=== PATIENT | male | born 1980 | race Caucasian/White ===

== ENCOUNTER 2025-04-25 18:34 | Inpatient (IN) | payer BC, SELFPAY ==
[2025-04-25 15:20] VITALS: BP 135/83
--- NOTE | 2025-04-25 16:05 | ED.GENMED ---
History of Present Illness
<Michael Martines PA-C - Last Filed: 04/25/25 16:09>
General
Chief Complaint: Insect Sting
Source: patient
Time Seen by Provider: 04/25/25 15:53
History of Present Illness
History of Present Illness:
44-year-old male with past medical history of hypothyroidism presenting to the ER for evaluation at the request of primary care provider after he noticed some redness to the left medial foot about 2 to 3 days ago, progressively worsened prompting
him to go to the primary care today who recommended he come to the ER for further evaluation. Patient denies any fevers, chills, rigors. He does note that last week he had been [place] and out [place] but states he is unaware of any tick
bites. No history of similar. He did take some Motrin for pain prior to arrival, currently declining anything else for pain.
Past History
<Michael Martines PA-C - Last Filed: 04/25/25 16:09>
Past History
ED Past Medical History: Hypothyroidism
ED Past Surgical History: Tonsilectomy
Social History
Tobacco: Non-smoker
Alcohol: Occasional
Drug: None
Personal:
Living: with family
Employment: Employed
Review of Systems
<Michael Martines PA-C - Last Filed: 04/25/25 16:09>
Review of Systems
All Other Systems: ROS reviewed and negative except as documented in HPI and ROS
Phy Exam
<Michael Martines PA-C - Last Filed: 04/25/25 16:09>
Physical Exam
Physical Exam:
GENERAL: Alert , in no apparent distress
EYE: conjunctiva clear
Head: Normocephalic atraumatic
NECK: Supple,
ENT: mmm.
LUNGS: no acute respiratory distress
NEUROLOGICAL: Alert and oriented
SKIN: Warm and dry, left medial foot has deep circular area of erythema with 2 small breaks in the skin, no purulence, indurated, hot to the touch. Streaking goes up the left lower leg and into the medial thigh towards the groin.
MUSCULOSKELETAL: well perfused. Edema noted around the areas of erythema. Palpable pedal and tibial pulse. Cap refill less than 2 seconds.
PSYCH: Normal and appropriate interaction.
Scores
<Michael Martines PA-C - Last Filed: 04/25/25 16:09>
Heart Failure Risk
Heart Failure Risk Score: Not Applicable
Heart Score for Chest Pain Patients
STEMI patient?: Not applicable
Withdrawal Assessment of Alcohol
Withdrawal Assessment Completed?: Not applicable
Course
<Michael Martines PA-C - Last Filed: 04/25/25 16:09>
Orders/Labs/Results
Orders:
Orders
04/25/25 Breakfast
Regular
At Your Request: Full Participation
Does patient need a safe tray?: No
04/25/25 15:59
US Periph Venous LOWER Ext LT Urgent
Comment:
Reason For Exam: edema/erythema
04/25/25 17:00
CeFAZolin 1 GRAM [Ancef] 1 gram in 5 ml IV NOW
04/25/25 17:08
Basic Metabolic Panel Urgent
Complete Blood Count/With Diff Urgent
Lactic Acid Q4H
Comment: CANCEL 2nd LACTIC ACID IF 1st LACTIC ACID IS LESS THAN 2
Lyme Progressive Urgent
Blood Culture Q30M
CHER Source: Blood/Venous
Specimen Description:
Blood Culture Q30M
CHER Source: Blood/Venous
Specimen Description:
04/25/25 17:48
Admit/Transfer Patient As Directed
Co-Sign Provider:
Level of Care: Inpatient admission
Assign to:: Medical/Surgical
Physician / Group: [facility] [place]
Diagnosis: left LE cellulitis
Reason for Hospitalization: left LE cellulitis
Expected length of stay greater than two midnights?: Yes
ELOS- Estimated Length of Stay in days: 3
I certify the patient meets the requirements for IP care: Yes
PRN Pain Medication Management As Directed
May give lesser potent ordered pain med per pt: Yes
preference::
Protocol:: Medication orders for pain may be administered in a
manner that supports deferring to patient preference
when the pt is:
- Requesting an ordered lesser potent pain medication.
Least to most potent pain medications are defined
as: acetaminophen < NSAID < tramadol < opioids
(morphine, oxycodone, hydromorphone).
- Requesting a lesser dose of the same medication IF
ORDERED.
- Requesting a less intrusive route of administration
if both routes are prescribed by the provider (PO <
IV).
04/25/25 17:50
Code Status As Directed
Resuscitation Status: Full Code
04/25/25 19:40
Acetaminophen [Tylenol/Feverall] 650 mg RECTAL Q4HPRN PRN
Acetaminophen [Tylenol] 650 mg PO Q4HPRN PRN
Enoxaparin Sodium [Lovenox] 40 mg SC QPM
04/25/25 19:40
Activity As Directed
Activity Level: Out of Bed-Early Mobility
Intake/ Output As Directed
Frequency: Per unit guidelines
Vital Signs As Directed
Frequency: Per unit guidelines
DX Deep Vein Thrombosis Video Routine
04/26/25 00:00
CeFAZolin 2 GRAM [Ancef] 2 grams in 10 ml IV Q8H
Abnormal Lab Results
04/25/25
17:08
Absolute Neuts (auto) 8.3 H 10^3/uL
(1.4-6.5)
Absolute Lymphs (auto) 0.6 L 10^3/uL
(1.2-3.4)
Absolute Monos (auto) 0.8 H 10^3/uL
(0.1-0.6)
Neutrophils % 84.5 H %
(42.2-75.2)
Lymphocytes % 6.4 L %
(20.5-51.1)
04/25/25 17:08
04/25/25 17:08
Vital Signs
Initial and Last Documented VS:
Initial Vital Signs
Temp Pulse Resp BP Pulse Ox
98.5 F 87 16 135/83 97
04/25/25 15:20 04/25/25 15:20 04/25/25 15:20 04/25/25 15:20 04/25/25 15:20
Last Documented Vital Signs
Temp Pulse Resp BP Pulse Ox
99.2 F 108 18 128/72 95
04/26/25 00:14 04/25/25 22:21 04/25/25 22:21 04/25/25 22:21 04/25/25 22:21
<BRADEN Acevedo - Last Filed: 04/26/25 00:39>
Orders/Labs/Results
Orders:
Orders
04/25/25 Breakfast
Regular
At Your Request: Full Participation
Does patient need a safe tray?: No
04/25/25 15:59
US Periph Venous LOWER Ext LT Urgent
Comment:
Reason For Exam: edema/erythema
04/25/25 17:00
CeFAZolin 1 GRAM [Ancef] 1 gram in 5 ml IV NOW
04/25/25 17:08
Basic Metabolic Panel Urgent
Complete Blood Count/With Diff Urgent
Lactic Acid Q4H
Comment: CANCEL 2nd LACTIC ACID IF 1st LACTIC ACID IS LESS THAN 2
Lyme Progressive Urgent
Blood Culture Q30M
CHER Source: Blood/Venous
Specimen Description:
Blood Culture Q30M
CHER Source: Blood/Venous
Specimen Description:
04/25/25 17:48
Admit/Transfer Patient As Directed
Co-Sign Provider:
Level of Care: Inpatient admission
Assign to:: Medical/Surgical
Physician / Group: [facility] [place]
Diagnosis: left LE cellulitis
Reason for Hospitalization: left LE cellulitis
Expected length of stay greater than two midnights?: Yes
ELOS- Estimated Length of Stay in days: 3
I certify the patient meets the requirements for IP care: Yes
PRN Pain Medication Management As Directed
May give lesser potent ordered pain med per pt: Yes
preference::
Protocol:: Medication orders for pain may be administered in a
manner that supports deferring to patient preference
when the pt is:
- Requesting an ordered lesser potent pain medication.
Least to most potent pain medications are defined
as: acetaminophen < NSAID < tramadol < opioids
(morphine, oxycodone, hydromorphone).
- Requesting a lesser dose of the same medication IF
ORDERED.
- Requesting a less intrusive route of administration
if both routes are prescribed by the provider (PO <
IV).
04/25/25 17:50
Code Status As Directed
Resuscitation Status: Full Code
04/25/25 19:40
Acetaminophen [Tylenol/Feverall] 650 mg RECTAL Q4HPRN PRN
Acetaminophen [Tylenol] 650 mg PO Q4HPRN PRN
Enoxaparin Sodium [Lovenox] 40 mg SC QPM
04/25/25 19:40
Activity As Directed
Activity Level: Out of Bed-Early Mobility
Intake/ Output As Directed
Frequency: Per unit guidelines
Vital Signs As Directed
Frequency: Per unit guidelines
DX Deep Vein Thrombosis Video Routine
04/26/25 00:00
CeFAZolin 2 GRAM [Ancef] 2 grams in 10 ml IV Q8H
Abnormal Lab Results
04/25/25
17:08
Absolute Neuts (auto) 8.3 H 10^3/uL
(1.4-6.5)
Absolute Lymphs (auto) 0.6 L 10^3/uL
(1.2-3.4)
Absolute Monos (auto) 0.8 H 10^3/uL
(0.1-0.6)
Neutrophils % 84.5 H %
(42.2-75.2)
Lymphocytes % 6.4 L %
(20.5-51.1)
04/25/25 17:08
04/25/25 17:08
Vital Signs
Initial and Last Documented VS:
Initial Vital Signs
Temp Pulse Resp BP Pulse Ox
98.5 F 87 16 135/83 97
04/25/25 15:20 04/25/25 15:20 04/25/25 15:20 04/25/25 15:20 04/25/25 15:20
Last Documented Vital Signs
Temp Pulse Resp BP Pulse Ox
99.2 F 108 18 128/72 95
04/26/25 00:14 04/25/25 22:21 04/25/25 22:21 04/25/25 22:21 04/25/25 22:21
<Michael Martines PA-C - Last Filed: 04/25/25 16:09>
MDM/Problems Addressed
Differential Diagnosis Includes:
- Cellulitis
- DVT
- Superficial phlebitis
- Erythema migrans/Lyme
- Necrotizing fasciitis
MDM/Problems Addressed:
44-year-old male presented to the ER for evaluation of erythema, pain and mild edema to the left lower extremity over the last 2 to 3 days. Erythema now streaking all the way up the left leg and into the groin. No fevers or chills. There were
small breaks in the skin, presentation seems most suggestive of a cellulitis with lymphangitis. Will initiate patient on IV antibiotics. Labs and ultrasound ordered. Patient declining anything for pain. Will notify hospitalist team pending ER
workup.
<Michael Martines PA-C - Last Filed: 04/25/25 16:09>
*Pulse Oximetry
SaO2: 97
Oxygen Mode of Delivery: Room air
Patient hypoxic: no
<BRADEN Acevedo - Last Filed: 04/26/25 00:39>
*Critical Care Note
Total Time (30-74mins, 75-104mins- exclusive of procedures): Not Applicable
<BRADEN Acevedo - Last Filed: 04/26/25 00:39>
Update Note
Update Note:
Labs reviewed white count unremarkable and ultrasound negative for DVT care of patient at this time discussed with hospitalist for admission
ED Attending Note
<Michael Martines PA-C - Last Filed: 04/25/25 16:09>
-
Portions of this chart may have been created with voice recognition software.� Occasional wrong word or��sound alike� substitutions may have occurred due to the inherent limitations of voice recognition software.
Discharge Plan
Departure
Patient Disposition: Admit
Date of Disposition: 04/25/25
Time of Disposition: 17:36
Admit to: Med/Surg
Admit to doctor: hospitalist
Presentation/result/management discussed w/ accepting MD/DO: Hospitalist
Patient with high blood pressure during this ER visit?: Yes
Condition: Fair
Covid-19: Not Applicable
Discharge Problem:
Cellulitis
Interventions
Interventions:
*Risk Screen - Suicide Last Done: 04/25/25 15:23
*General Assessment Last Done: 04/25/25 17:58
*Neglect/Abuse Screening Last Done: 04/25/25 15:23
*ED- Fall Risk Assessment Last Done: 04/25/25 17:58
*ED COVID-19 Vaccine History Last Done: 04/25/25 17:58
*Nursing Disposition Last Done: 04/25/25 19:42
ED-Skin Assessment Last Done: 04/25/25 17:58
ED- Pulmonary Assessment Last Done: 04/25/25 17:58
Discharge Date and Time
Discharge Date/Time: 04/25/25 19:43
[2025-04-25] MEDS: ANCEF 5 IV (17:13)
[2025-04-25 17:23] LABS: % Basophils 0.2 % (0-2); % Eosinophils 0.5 % (0-6); % Immature Granulocytes 0.3 % (0-0.5); % Lymphocytes 6.4 % (20.5-51.1); % Monocytes 8.1 % (1.7-9.3); % Neutrophils 84.5 % (42.2-75.2); Absolute Eosinophils 0.1 10^3/uL (0-0.7); Absolute Lymphocytes 0.6 10^3/uL (1.2-3.4); Absolute Monocytes 0.8 10^3/uL (0.1-0.6); Absolute Neutrophils 8.3 10^3/uL (1.4-6.5); Hematocrit 44.5 % (39.0-52.0); Mean Corp Hgb Conc. 33.7 g/dL (33.0-37.0); Mean Corpuscular Hgb 29.2 pg (27.0-31.0); Mean Corpuscular Volume 86.6 fL (80.0-94.0); Mean Platelet Volume 9.9 fL (7.4-10.4); Nucleated Red Blood Cells % 0 % (-); Platelet Count 197 10^3/uL (130-400); Red Blood Cell Count 5.14 10^6/uL (4.70-6.10); Red Cell Dist. Width 13.2 % (11.5-14.5); White Blood Cell Count 9.8 10^3/uL (4.8-10.8)
[2025-04-25 17:31] LABS: Lactic Acid 0.7 mmol/L (0.7-2.0)
[2025-04-25 17:32] LABS: Blood Urea Nitrogen 16 mg/dl (9-20); Calcium 9.2 mg/dl (8.4-10.2); Carbon Dioxide 26 mmol/L (22-30); Chloride 106 mmol/L (98-107); Glucose 80 mg/dl (70-99); Potassium 4.2 mmol/L (3.5-5.1); Sodium 138 mmol/L (135-145); eGFR > 60.00
--- NOTE | 2025-04-25 17:37 | HPS.HSE ---
Family Physician
-
Family Physician: Dylan Burr
Chief Complaint
-
left LE redness
History of Present Illness
44-year-old male with past medical history of hypothyroidism presenting to the ER for evaluation at the request of primary care provider after he noticed some redness to the left medial foot on Thursday. he noticed a small dot on his left foot last
Thursday, which progressively got red and swollen. his redness progressed to his groin. he was at his backyard last week. not sure if he bit by tick. Patient denies any fevers, chills, rigors. He does note that last week he had been [place] and out
[place] but states he is unaware of any tick bites. Patient denies any headache, dizziness syncope. Patient denied any chest pain, short of breath. Patient denied any abdominal pain, nausea, vomiting or diarrhea. Patient denied dysuria
hematuria.
Patient received cefazolin in ER. Lyme sent from ER. Blood culture sent from ER
Medical History
Past Medical History
Past Medical History: Reports Other
Additional Past Medical History:
Hypothyroid
Past Surgical History: Reports Other
Additional Past Surgical History:
Tonsillectomy
Prior surgery
Adenoidectomy
Social History
Tobacco: Non-smoker
Alcohol: Occasional
Drug: None
Family History
Family History: Not pertinent
Allergies / Home Medications
Allergies reflects when Allergies were last updated in [facility].
Home Medications with original date entered in [facility]
Allergy/Medication List:
Allergies
Allergy/AdvReac Type Severity Reaction Status Date / Time
amoxicillin Allergy Unknown Verified 04/25/25 15:23
Penicillins Allergy Unknown Verified 04/25/25 15:23
Review of Systems
-
Constitutional: Reports No Symptoms
EENT: Reports No Symptoms
Respiratory: Reports No Symptoms
Cardiac: Reports No Symptoms
Abdomen/GI: Reports No Symptoms
: Reports No Symptoms
Musculoskeletal: Reports Other (Left foot redness and swelling)
Skin: Reports No Symptoms
Neurological: Reports No Symptoms
Endocrine: Reports No Symptoms
Hematologic/Lymphatic: Reports No Symptoms
Psych: Reports No Symptoms
Physical Exam
Vital Signs
Vital Signs
Temp Pulse Resp BP Pulse Ox
98.5 F 87 16 135/83 97
04/25/25 15:20 04/25/25 15:20 04/25/25 15:20 04/25/25 15:20 04/25/25 16:09
Physical Exam
General: Well Developed, Well Nourished and No Apparent Distress
HEENT: NormoCephalic, Moist mucous membranes and Atraumatic
Respiratory: Clear
Cardiac: S1/S2 and Regular Rhythm; No Murmur or Rub
GI: Soft, Non Tender, Non Distended and Normal Bowel Sounds; No Organomegaly
Rectal: Deferred by Provider
Musculoskeletal: No Clubbing, No Cyanosis and No Edema
Skin: Other (eft medial foot has deep circular area of erythema with 2 small breaks in the skin, no purulence, indurated, hot to the touch. Streaking goes up the left lower leg and into the medial thigh towards the groin.)
Neuro: AO x 3 and Nonfocal/grossly intact
Psych: Calm
Laboratory Results
-
04/25/25 17:08
04/25/25 17:08
Laboratory Results
Lactic Acid 0.7 mmol/L (0.7-2.0) 04/25/25 17:08
Data Reviewed
-
Diagnostic Radiology: Report Reviewed by me
Lab Data: Labs Reviewed by me
Impression/Plan
-
# Cellulitis and lymphangitis of left lower extremity
- Negative for DVT
-Lyme sent from ER
- Blood culture sent from ER
- IV Ancef continued
- Tylenol p.o. for fever or pain
- ID consulted
# Hypothyroidism
- [place] Thyroid continue
# DVT prophylaxis
- Lovenox subcu
# CODE STATUS
- Full code
[2025-04-25 18:03] VITALS: BP 131/77
--- NOTE | 2025-04-25 18:38 | W.PN.UPDATE ---
Update Note
Progress Note Update
This note serves as an addendum to the H&P by statistics tutor MOISES
Julianne DARLIN
HPI
44M HX Hypothyroid seen at ER ;
- evaluation of erythema, pain and mild edema to the left lower extremity over the last 2 to 3 days.
- Erythema now streaking all the way up the left leg and into the groin.
- No fevers or chills
- reports possible bitten by Bugs ? Tick
PHX
Relevant VS
PE
Gen: Not toxic
SKIN: Warm and dry, left medial foot has deep circular area of erythema with 2 small breaks in the skin, no purulence, indurated, hot to the touch. Streaking goes up the left lower leg and into the medial thigh towards the groin.
MUSCULOSKELETAL: well perfused. Edema noted around the areas of erythema. Palpable pedal and tibial pulse. Cap refill less than 2 seconds.
Relevant Data
Last hospitalist admission:
ASSESSMENT & PLAN
Cellulitis LL Ex with ascending lymphangitis
- Negative for DVT
- Lyme sent from ER
- Blood culture sent from ER
- IV Ancef
- Tylenol p.o. for fever or pain
- ID consulted
Hypothyroidism
- [place] Thyroid continue
DVT Px: LMWH
Code: Full
IP MS
[2025-04-25 19:43] VITALS: BP 152/89; BMI 28.1
--- NOTE | 2025-04-25 19:45 | TRANSFER ---
pt arrived from ED via stretcher. pt ambulated from stretcher to bed without assistance. pt AAOx3, c/o 5/10 pain in L leg. pt with temp of 100.6 on admission, 650mg tylenol administered at 1999. other VSS. plan of care ongoing.
[2025-04-25] MEDS: TYLENOL 650 MG PO (19:56)
[2025-04-25] MEDS: MELATONIN 10 MG PO (20:43)
[2025-04-25] MEDS: NSS 1000 IV (21:24)
[2025-04-25 22:21] VITALS: BP 128/72
--- NOTE | 2025-04-25 22:30 | PTCARENOTE ---
pt with persistent elevated temperatures. at 2044 temp of 102, at 0 temp of 102.6, pt HR up to 108 at rest. other VSS. SENIOR NATIONAL ACCOUNT MANAGER made aware. pt placed on tele monitor, toradol 15mg IV administered, will continue to monitor closely for any changes.
[2025-04-25] MEDS: TORADOL 15 MG IV (22:34)
[2025-04-25] MEDS: ANCEF 10 IV (23:05)
[2025-04-26 03:09] VITALS: BP 124/76
[2025-04-26] MEDS: TYLENOL 650 MG PO ×3 (03:30→17:59)
[2025-04-26 07:32] LABS: Hematocrit 44.4 % (39.0-52.0); Hemoglobin 15.2 g/dL (13.0-18.0); Mean Corp Hgb Conc. 34.2 g/dL (33.0-37.0); Mean Corpuscular Hgb 29.7 pg (27.0-31.0); Mean Corpuscular Volume 86.9 fL (80.0-94.0); Mean Platelet Volume 9.8 fL (7.4-10.4); Platelet Count 170 10^3/uL (130-400); Red Blood Cell Count 5.11 10^6/uL (4.70-6.10); Red Cell Dist. Width 13.2 % (11.5-14.5); White Blood Cell Count 8.6 10^3/uL (4.8-10.8)
[2025-04-26 08:01] LABS: Blood Urea Nitrogen 13 mg/dl (9-20); Calcium 8.7 mg/dl (8.4-10.2); Carbon Dioxide 26 mmol/L (22-30); Chloride 107 mmol/L (98-107); Estimated Creatinine Clearance 75 ml/min; Glucose 96 mg/dl (70-99); Potassium 4.5 mmol/L (3.5-5.1); Sodium 138 mmol/L (135-145); eGFR > 60.00
[2025-04-26] MEDS: ARMOUR THYROID 210 MG PO (08:16)
[2025-04-26] MEDS: ANCEF 10 IV ×3 (08:17→23:27)
[2025-04-26 08:37] VITALS: BP 127/75
[2025-04-26] MEDS: NSS 1000 IV ×2 (10:05→23:27)
--- NOTE | 2025-04-26 11:11 | CM ---
Patient seen bedside, initial assessment completed. Patient is a 44-year-old male with past medical history of hypothyroidism presenting to the ER for evaluation of erythema, pain and mild edema to the left lower extremity.
Patient resides w/ spouse and their children in a [place], no steps to enter. Patient is independent in all areas, no DME. No therapy hx reported.
Address, point of contact and insurance verified
PCP: Dylan Burr
Pharmacy: [facility]
ID consulted
Plan: Home, no needs likely
[2025-04-26 11:25] VITALS: BP 125/75
--- NOTE | 2025-04-26 11:31 | W.PN.HOSP.TC ---
Today's Communication/Plan
-
see plan
Assessment / Plan
Assessment / Plan
Gen: NAD, AAOx3.
Eyes: EOMI, PERRLA, no scleral icterus.
Neck: supple.
CV: RRR, +S1/S2, no m/r/g.
Resp: CTAB, no rales, wheezes, or rhonchi.
Abd: +BS, soft, NT, ND
Skin: LLE cellulitis. medial distal LLE with two pustules.
Neuro: CN 2-12 intact, non-focal.
Psych: Normal mood and affect.
LLE U/S:
1. No evidence of deep venous thrombosis in the left lower extremity as described above.
2. Probable cellulitis and adjacent reactive lymph nodes in the medial left ankle region.
Sepsis (POA) due to LLE Cellulitis with lymphangitis:
-cont Ancef, with pustule will add Vanco pending ID eval
-Lyme sent from ER
-follow BCxs
-c/s ID
-pain control
-warm compresses to medial distal LLE, obtain culture from pustule
Hypothyroidism:
-cont home [place] Thyroid
FULL/Lovenox
Anticipated Discharge: 24 - 48 hours
Subjective/Interval History
-
Date of Service: April 26, 2025
No new complaints.
Objective Data
-
Labs:
Laboratory Results
04/26/25
07:01
WBC 8.6
Hgb 15.2
Hct 44.4
Plt Count 170
Sodium 138
Potassium 4.5
Chloride 107
Carbon Dioxide 26
BUN 13
Creatinine 1.4 H
Glucose 96
Calcium 8.7
Vital Signs:
Vital Signs
Temp Pulse Resp BP Pulse Ox
100.1 F 89 18 125/75 97
04/26/25 11:25 04/26/25 11:25 04/26/25 11:25 04/26/25 11:25 04/26/25 11:25
I&O
04/25/25 04/26/25 04/27/25
06:59 06:59 06:59
Intake Total 1280 / 1280
Output Total 300 / 300
Balance 980 / 980
--- NOTE | 2025-04-26 12:18 | PHA.VAN.IN ---
Assessment
- Assessment
Renal Function: Unknown baseline
Concomitant Antimicrobials: cefazolin
Plan
- Plan
Initial / Loading Dose: 2000mg - administration pending
Maintenance Regimen: dosing by level
Monitoring: random 04/27 600
Pharmacokinetics Vancomycin I
- -
Patient Age: 44
Patient Sex: Male
Vancomycin Day #: 1
Indication: Skin And Soft Tissue
Requesting Provider: Dr. Ogden
Pertinent Antimicrobial Allergies:
amoxicillin - unknown
penicillins - unknown
Height / Weight:
Height 6 ft 1 in
Actual Weight 96.672 kg
- Vital Signs / Lab Results
Temp Pulse Resp BP Pulse Ox
100.1 F 89 18 125/75 97
04/26/25 11:25 04/26/25 11:25 04/26/25 11:25 04/26/25 11:25 04/26/25 11:25
Lab Results - Hematology
04/25/25 04/26/25
17:08 07:01
WBC 9.8 8.6
Lab Results - Chemistry
04/25/25 04/26/25
17:08 07:01
BUN 16 13
Creatinine 1.2 1.4 H
Estimated Creat Clear 75
04/25/25 04/25/25
17:08 20:00
Lactic Acid 0.7 Cancelled
[2025-04-26] MEDS: VANCOCIN 540 MG IV (12:57)
[2025-04-26 15:22] VITALS: BP 116/69
--- NOTE | 2025-04-26 17:06 | CON.ID ---
Consultation
-
Date/Time Consultation Requested: April
Date/Time Consultation Performed: april 26, 2025
Requesting Provider: Dr Ogden
Performing Provider: Shi Fuentes MD
Reason for Consultation: skin erythema/ blistering likely due to insect bite/sting
Chief Complaint / Past History
Chief Complaint
lower leg erythema, blistering, pain streaking secondary to insect bite sting
History of Present Illness
The patient was in his grassy back yard where he believes he was bitten/stung by insect with resulting pain, blistering, erythema with streaking
Past History
Past Medical History: Hypothyroidism
Past Surgical History: None
Allergy History:
amoxicillin Allergy (Verified 04/25/25 15:23)
Unknown
Penicillins Allergy (Verified 04/25/25 15:23)
Unknown
Medications Reviewed: Yes
Social History
Tobacco: Non-Smoker
Alcohol: None
Drug: None
Personal:
Living: With Family
Employment: Employed
Family History
Family History: Not Pertinent
Review of Systems
Review of Systems
General: Other (pain, erythema, streaking swelling lower leg at site of insect bite or sting)
Endocrine: Other (hypothyroid)
All systems: All other systems were reviewed and were negative
Vital Signs
Temp Pulse Resp BP Pulse Ox
98.8 F 87 18 116/69 96
04/26/25 15:22 04/26/25 15:22 04/26/25 15:22 04/26/25 15:22 04/26/25 15:22
Physical Exam
Physical Exam
Constitutional: No Acute Distress, Well Developed, Comfortable and Non-toxic
Head: Normocephalic
Eyes: Pupils Equal, Pupils Round and No Conjunctival Hemorrhage
Pharynx: Benign
Oral: No Thrush and No Ulcers
Cardiovascular: Regular Rate
Pulmonary: Clear and Non Labored
Gastrointestinal: Soft, Non Tender, Non Distended, Normal Bowel Sounds, No Rebound and No Guarding
Extremities: Erythema and Calf Swelling
Skin: Rash and Other (small blisters, significant erythema, swelling , pain)
Wound: Other (see above)
Neurological: Awake, Alert, Oriented, AO x 3, Normal Muscle Strength and No Motor Deficits
Psychological: Calm
Lines: PIV
Lab / Diagnostic Study Results
04/26/25 07:01
04/26/25 07:01
Abs Immat Gran (auto) 0.0 10^3/uL (0-0.05) 04/25/25 17:08
Absolute Neuts (auto) 8.3 10^3/uL (1.4-6.5) H 04/25/25 17:08
Absolute Lymphs (auto) 0.6 10^3/uL (1.2-3.4) L 04/25/25 17:08
Absolute Monos (auto) 0.8 10^3/uL (0.1-0.6) H 04/25/25 17:08
Absolute Basos (auto) 0.0 10^3/uL (0-0.2) 04/25/25 17:08
Immature Gran % 0.3 % (0-0.5) 04/25/25 17:08
Neutrophils % 84.5 % (42.2-75.2) H 04/25/25 17:08
Lymphocytes % 6.4 % (20.5-51.1) L 04/25/25 17:08
Monocytes % 8.1 % (1.7-9.3) 04/25/25 17:08
Eosinophils % 0.5 % (0-6) 04/25/25 17:08
Basophils % 0.2 % (0-2) 04/25/25 17:08
Lactic Acid Cancelled 04/25/25 20:00
Microbiology Results
Micro:
04/25/25 23:14 MRSA Screen - Pending
Nose
04/25/25 17:08 Blood Culture - Pending
Blood/Venous
04/25/25 17:08 Blood Culture - Pending
Blood/Venous
Assessment / Plan
1. Lower extremity insect bite/sting resulting in erythema, pain, swelling , small blisters
2. Concern for tick bite and multiple tickborne diseases including but not limited to Lyme, anaplasma, erlichiosis , RMSF, babesiosis
Concern for stinging insect with resulting inflammation from sting
Care Review
Plan reviewed with: Nurse
Total Time Spent with Patient (in minutes): 35
[2025-04-26] MEDS: MELATONIN 10 MG PO (21:59)
[2025-04-26 23:25] VITALS: BP 121/69
[2025-04-27 07:15] VITALS: BP 109/72
[2025-04-27 08:30] LABS: Vancomycin Random < 5.0 ug/ml
[2025-04-27] MEDS: ARMOUR THYROID 210 MG PO (08:57)
[2025-04-27] MEDS: ANCEF 10 IV ×3 (08:59→23:10)
--- NOTE | 2025-04-27 09:10 | PHA.VAN.FU ---
Vancomycin Assessment / Plan
- Assessment
Renal Function: No New Labs Today
WBC's are: WNL
In the past 24 hrs, patient has been: Afebrile
Concomitant Antimicrobials: cefazolin
- Assessment - Therapeutic Drug Monitoring
Random Level: < 5 - drawn ~17.5H after 2g dose
Unclear if level truly accurate - would expect patient to have some detectable level following loading dose
- Dosing Plan
Dosing by Level: Re-dose today (Vanc 1250mg x1 now plus 1000mg x1 at 1800)
Will continue dosing by level given unclear renal function trend
Will trial BID dosing - give slightly higher dose now to booster levels
- Monitoring Plan
Random Level: 04/28 600
- Follow Up
Pharmacy will continue to follow.
Vancomycin Follow UP
- -
Patient Age: 44
Patient Sex: Male
Vancomycin Day #: 2
Indication: Skin And Soft Tissue
Requesting Provider: Dr. Ogden
Pertinent Antimicrobial Allergies:
amoxicillin - unknown
penicillins - unknown
Height / Weight:
Height 6 ft 1 in
Actual Weight 96.672 kg
- Vital Signs / Lab Results
Temp Pulse Resp BP Pulse Ox
98.7 F 65 18 109/72 96
04/27/25 07:15 04/27/25 07:15 04/27/25 07:15 04/27/25 07:15 04/27/25 07:15
Lab Results - Hematology
04/25/25 04/26/25
17:08 07:01
WBC 9.8 8.6
Lab Results - Chemistry
04/25/25 04/26/25
17:08 07:01
BUN 16 13
Creatinine 1.2 1.4 H
Estimated Creat Clear 75
04/25/25 04/25/25
17:08 20:00
Lactic Acid 0.7 Cancelled
Microbiology Results
04/25/25 23:14 MRSA Screen - Final
Nose No Methicillin Resistant Staphylococcus aureus isolated.
04/25/25 17:08 Blood Culture - Preliminary
Blood/Venous No Growth in 24 hours- Final report to follow
04/25/25 17:08 Blood Culture - Preliminary
Blood/Venous No Growth in 24 hours- Final report to follow
Therapeutic Drug Monitoring
Random Vancomycin < 5.0 ug/ml 04/27/25 06:40
[2025-04-27] MEDS: VANCOCIN 275 MG IV (09:47)
--- NOTE | 2025-04-27 10:28 | W.PN.HOSP.TC ---
Today's Communication/Plan
-
see plan
Assessment / Plan
Assessment / Plan
Gen: NAD, AAOx3.
Eyes: EOMI, PERRLA, no scleral icterus.
Neck: supple.
CV: RRR, +S1/S2, no m/r/g.
Resp: CTAB, no rales, wheezes, or rhonchi.
Abd: +BS, soft, NT, ND
Skin: LLE cellulitis. medial distal LLE with two pustules.
Neuro: CN 2-12 intact, non-focal.
Psych: Normal mood and affect.
04/25/25 23:14 Nose MRSA Screen - Final
No Methicillin Resistant Staphylococcus aureus isolated.
04/25/25 17:08 Blood/Venous Blood Culture - Preliminary
No Growth in 24 hours- Final report to follow
04/25/25 17:08 Blood/Venous Blood Culture - Preliminary
No Growth in 24 hours- Final report to follow
LLE U/S:
1. No evidence of deep venous thrombosis in the left lower extremity as described above.
2. Probable cellulitis and adjacent reactive lymph nodes in the medial left ankle region.
Sepsis (POA) due to LLE Cellulitis with lymphangitis:
-cont Ancef/Vanco as per ID
-Lyme sent from ER
-BCxs NGTD
-pain control
-warm compresses to medial distal LLE, obtain culture from pustule
Hypothyroidism:
-cont home [place] Thyroid
FULL/Lovenox
Anticipated Discharge: 24 - 48 hours
Subjective/Interval History
-
Date of Service: April 27, 2025
No new complaints.
Objective Data
-
Vital Signs:
Vital Signs
Temp Pulse Resp BP Pulse Ox
98.7 F 65 18 109/72 96
04/27/25 07:15 04/27/25 07:15 04/27/25 07:15 04/27/25 07:15 04/27/25 07:15
I&O
04/26/25 04/27/25 04/28/25
06:59 06:59 06:59
Intake Total 1280 / 1280 1800 / 1800
Output Total 300 / 300 600 / 600
Balance 980 / 980 1200 / 1200
--- NOTE | 2025-04-27 11:13 | CM ---
Patient seen at bedside on . Patient stated that he is planning for discharge home today. Patient has no needs and has a ride at this time. CM will continue to follow for discharge planning needs.
Plan; home with no needs anticipated.
[2025-04-27 13:28] LABS: Lyme Antibody Screen, EIA Negative (Negative)
[2025-04-27] MEDS: NSS IV (13:51)
--- NOTE | 2025-04-27 14:34 | W.PN.ID1 ---
Date of Service
Date of Service: April 27, 2025
Today's Communication
continue antibiotic
Assessment / Plan
1. Lower extremity insect bite/sting resulting in erythema, pain, swelling , small blisters
2. Concern for tick bite and multiple tickborne diseases including but not limited to Lyme, anaplasma, erlichiosis , RMSF, babesiosis
Concern for stinging insect with resulting inflammation from sting
3.Cultures with NGTD
4. Left lower leg erythema/cellulitis less angry appearing with patient afebrile/without leukocytosis,no MRSA
5. Cannot exclude Lyme consider D/C home on po Cefuroxime axetil 500 mg po Q 12 H for 10 days which will be effective for Lyme as well for broad spectrum coverage
6. Continue local care of wound with elevation of left lower leg
Chief Complaint
-: Cellulitis (cellulitis likely from insect/spider bite)
Subjective / Review of Systems
Review of Systems: No Fever, No Chills, No Headache, No Pharyngitis, No Stiff Neck, No Swollen Lymph Nodes, No Cough, No Sputum Production, No Chest Pain, No Palpitations, No Abdominal Pain, No Nausea, No Vomiting, No Diarrhea, No Dysuria, No Joint
Pain and Skin Rash (decreasing erythema, flacid pustule lower leg left)
Vital Signs / Physical Exam
Vital Signs
Vital Signs
Temp Pulse Resp BP Pulse Ox
98.7 F 65 18 109/72 96
04/27/25 07:15 04/27/25 07:15 04/27/25 07:15 04/27/25 07:15 04/27/25 07:15
Physical Exam
Constitutional: No Acute Distress, Well Developed, Comfortable and Non-toxic
Head: Normocephalic
Eyes: Pupils Equal, Pupils Round, No Conjunctival Hemorrhage and Sclera Anicteric
Oropharyngeal: Benign
Cardiovascular: Regular Rate
Pulmonary: Clear and Non Labored
Gastrointestinal: Soft, Non Tender, Non Distended and Normal Bowel Sounds
Extremities: Erythema (with celulitic changes surrounding left lower leg bite)
Skin: Warm and Dry
Wound: Other (skin defect at bite site on left lower leg with surrounding erythema)
Neurological: Awake, Alert, Oriented, AO x 3 and No Motor Deficits
Psychological: Calm
Lines: PIV
Objective Data
Lab Data
Lab Results
04/26/25 07:01
04/26/25 07:01
Estimated Creat Clear 75 ml/min 04/26/25 07:01
Lactic Acid Cancelled 04/25/25 20:00
Most recent labs reviewed.
Microbiology: Report Reviewed (MRSA screen neg//cultures with NGTD)
Micro Results:
04/27/25 12:04 Wound Culture - Pending
Ulcer Gram Stain - Pending
04/25/25 23:14 MRSA Screen - Final
Nose No Methicillin Resistant Staphylococcus aureus isolated.
04/25/25 17:08 Blood Culture - Preliminary
Blood/Venous No Growth in 24 hours- Final report to follow
04/25/25 17:08 Blood Culture - Preliminary
Blood/Venous No Growth in 24 hours- Final report to follow
Other: Image Reviewed
Care Review
Plan reviewed with: Other (family)
Total Time Spent with Patient (in minutes): 35
--- NOTE | 2025-04-27 15:06 | W.PN.ID1 ---
Date of Service
Date of Service: April 27, 2025
Today's Communication
continue antibiotic
Assessment / Plan
1. Lower extremity insect bite/sting resulting in erythema, pain, swelling , small blisters
2. Concern for tick bite and multiple tickborne diseases including but not limited to Lyme, anaplasma, erlichiosis , RMSF, babesiosis
Concern for stinging insect with resulting inflammation from sting
3.Cultures with NGTD
4. Left lower leg erythema/cellulitis less angry appearing with patient afebrile/without leukocytosis,no MRSA
5. Cannot exclude Lyme consider D/C home on po Cefuroxime axetil 500 mg po Q 12 H for 10 days which will be effective for Lyme as well for broad spectrum coverage
6. Continue local care of wound with elevation of left lower leg
Chief Complaint
-: Cellulitis (cellulitis likely from insect/spider bite)
Subjective / Review of Systems
Review of Systems: No Fever, No Chills, No Headache, No Pharyngitis, No Stiff Neck, No Cough, No Sputum Production, No Chest Pain, No Palpitations, No Abdominal Pain, No Nausea, No Vomiting, No Diarrhea, No Dysuria and Skin Rash
Vital Signs / Physical Exam
Vital Signs
Vital Signs
Temp Pulse Resp BP Pulse Ox
98.7 F 65 18 109/72 96
04/27/25 07:15 04/27/25 07:15 04/27/25 07:15 04/27/25 07:15 04/27/25 07:15
Physical Exam
Constitutional: No Acute Distress, Well Developed, Comfortable and Non-toxic
Head: Normocephalic
Eyes: Pupils Equal, Pupils Round and No Conjunctival Hemorrhage
Oropharyngeal: Benign
Cardiovascular: Regular Rate
Pulmonary: Clear and Non Labored
Gastrointestinal: Soft, Non Tender and Non Distended
Extremities: Edema (left lower leg) and Erythema
Skin: Warm and Dry (ellulitis left lower leg)
Wound: Other (insect/spider bite left lower leg)
Neurological: Awake, Alert, Oriented, AO x 3 and No Motor Deficits
Psychological: Calm
Lines: PIV
Objective Data
Lab Data
Lab Results
04/26/25 07:01
04/26/25 07:01
Estimated Creat Clear 75 ml/min 04/26/25 07:01
Lactic Acid Cancelled 04/25/25 20:00
Most recent labs reviewed.
Microbiology: Report Reviewed
Micro Results:
04/27/25 12:04 Wound Culture - Pending
Ulcer Gram Stain - Pending
04/25/25 23:14 MRSA Screen - Final
Nose No Methicillin Resistant Staphylococcus aureus isolated.
04/25/25 17:08 Blood Culture - Preliminary
Blood/Venous No Growth in 24 hours- Final report to follow
04/25/25 17:08 Blood Culture - Preliminary
Blood/Venous No Growth in 24 hours- Final report to follow
Other: Image Reviewed
[2025-04-27 15:29] VITALS: BP 133/79
[2025-04-27] MEDS: VANCOCIN 200 IV (17:02)
[2025-04-27] MEDS: TYLENOL 650 MG PO (17:05)
[2025-04-27] MEDS: MELATONIN 10 MG PO (21:00)
[2025-04-27 23:33] VITALS: BP 128/53
[2025-04-28 06:56] VITALS: BP 132/82
[2025-04-28 08:26] LABS: Vancomycin Random < 5.0 ug/ml
[2025-04-28] MEDS: VANCOCIN 540 MG IV (09:14)
--- NOTE | 2025-04-28 09:14 | W.PN.HOSP.TC ---
Today's Communication/Plan
-
d/c
Assessment / Plan
Assessment / Plan
Gen: NAD, AAOx3.
Eyes: EOMI, PERRLA, no scleral icterus.
Neck: supple.
CV: remains RRR, +S1/S2, no m/r/g.
Resp: CTAB anteriorly, no rales, wheezes, or rhonchi.
Abd: +BS, soft, NT, ND
Skin: LLE cellulitis (slightly improved from yesterday), medial distal LLE with ruptured pustules.
Neuro: CN 2-12 intact, non-focal.
Psych: Normal mood and affect.
04/25/25 17:08 Blood/Venous Blood Culture - Preliminary
No Growth in 48 hours- Final report to follow
04/25/25 17:08 Blood/Venous Blood Culture - Preliminary
No Growth in 48 hours- Final report to follow
04/27/25 12:04 Ulcer Gram Stain - Preliminary
04/25/25 23:14 Nose MRSA Screen - Final
No Methicillin Resistant Staphylococcus aureus isolated.
LLE U/S:
1. No evidence of deep venous thrombosis in the left lower extremity as described above.
2. Probable cellulitis and adjacent reactive lymph nodes in the medial left ankle region.
Sepsis (POA) due to LLE Cellulitis with lymphangitis:
-Lyme screen NEG
-BCxs NGTD, follow WCx
-pain control
-was on Ancef/Vanco, now cleared for d/c on Ceftin 500mg PO BID x 10 days as per discussion with ID over the phone today.
Hypothyroidism:
-cont home [place] Thyroid
FULL/Lovenox
Total time spent on d/c = 31 min. This included today's physical exam, progress note, review of laboratory and diagnostic data, preparation of discharge documents and prescriptions, and discussions about the pt's hospital course and discharge plan
with the patient and other medical legal investigator involved in the patient's care.
Anticipated Discharge: Today
Subjective/Interval History
-
Date of Service: April 28, 2025
No new complaints.
Objective Data
-
Vital Signs:
Vital Signs
Temp Pulse Resp BP Pulse Ox
98.5 F 66 20 132/82 100
04/28/25 06:56 04/28/25 06:56 04/28/25 06:56 04/28/25 06:56 04/28/25 09:12
I&O
04/27/25 04/28/25 04/29/25
06:59 06:59 06:59
Intake Total 1800 / 1800 1200 / 1200
Output Total 600 / 600
Balance 1200 / 1200 1200 / 1200
[2025-04-28] MEDS: ANCEF 10 IV (09:15)
[2025-04-28] MEDS: FLUSH (NSS) 1 FLUSH IV (09:15)
[2025-04-28] MEDS: ARMOUR THYROID 210 MG PO (09:16)
[2025-04-28 09:56] LABS: Hematocrit 45.9 % (39.0-52.0); Hemoglobin 15.7 g/dL (13.0-18.0); Mean Corp Hgb Conc. 34.2 g/dL (33.0-37.0); Mean Corpuscular Volume 87.6 fL (80.0-94.0); Platelet Count 207 10^3/uL (130-400); Red Blood Cell Count 5.24 10^6/uL (4.70-6.10); Red Cell Dist. Width 13.1 % (11.5-14.5); White Blood Cell Count 6.6 10^3/uL (4.8-10.8)
[2025-04-28 09:59] LABS: Blood Urea Nitrogen 10 mg/dl (9-20); Calcium 9.2 mg/dl (8.4-10.2); Carbon Dioxide 30 mmol/L (22-30); Chloride 106 mmol/L (98-107); Estimated Creatinine Clearance 95 ml/min; Glucose 95 mg/dl (70-99); Potassium 4.7 mmol/L (3.5-5.1); Sodium 143 mmol/L (135-145); eGFR > 60.00
--- NOTE | 2025-04-28 10:46 | CM ---
Patient will d/c today
No CM needs identified at this time
Plan: Home, no needs
--- NOTE | 2025-04-28 13:54 | W.DCSUMMARY ---
Discharge Summary
Discharge Data
Date of Admission: 04/25/25
Date of Discharge: 04/28/25
-
Pending Results: Yes
Additional Pending Results:
Final wound culture results
Hospital Course
Primary diagnoses:
Sepsis due to LLE Cellulitis with lymphangitis
Secondary diagnoses:
Hypothyroidism
Consultants:
Infectious disease
Imaging:
LLE U/S:
1. No evidence of deep venous thrombosis in the left lower extremity as described above.
2. Probable cellulitis and adjacent reactive lymph nodes in the medial left ankle region.
Hospital course: 44-year-old male who presented with a chief complaint of left lower extremity erythema as outlined in the H&P done on admission. The patient was admitted for sepsis due to left lower extremity cellulitis with lymphangitis. He was
initially on Ancef and vancomycin and had improvement in his cellulitis. He was seen in consultation by infectious disease. Blood cultures were no growth to date. Preliminary wound culture was no growth. He was cleared for discharge by
infectious disease on Ceftin 500mg PO BID x 10 days.
Discharge Plan
-
Patient Disposition: Home (Routine Discharge)
Discharge Diagnosis/Procedures: LLE cellulitis
Condition: Good
Diet: No restrictions
Activity: As tolerated
Driving Restrictions: As prior to admission
Referrals:
Dylan Burr MD [Family Provider, Internal Medicine] - in less than 1 week
Prescriptions:
New
cefuroxime axetil 500 mg tablet
500 mg PO BID 10 Days Qty: 20 0RF
Continued
B Vitamin
3 gummy PO HS
therapeutic multivitamin Tablet
1 tab PO HS
ibuprofen 200 mg Tablet
400 mg PO Q6HPRN PRN (Reason: mild pain)
thyroid (pork) [[place] Thyroid] 60 mg tablet
210 mg PO DAILY
melatonin 10 mg Tablet
10 mg PO HS
creatine monohydrate 5,000 mg Powder In Packet
5,000 mg PO QPM
D Vitamin
3 gummy PO HS
tadalafil
1 tab PO DAILYPRN PRN (Reason: ED)
testosterone
1 dose IM TUSA
Discharge Orders:
Discharge Patient (As Directed); Ordered 04/28/25
Ordered By: Wilton Ogden
Discharge Date and Time
Discharge Date/Time: 04/28/25 11:47
Print Language: MARTINIQUAIS
--- NOTE | 2025-04-28 13:56 | W.PN.ID1 ---
Date of Service
Date of Service: April 28, 2025
Today's Communication
had brief conversation with pMD
Assessment / Plan
1. Lower extremity insect bite/sting resulting in erythema, pain, swelling , small blisters slowly improving
2. Concern for tick bite and multiple tickborne diseases including, but not limited to Lyme, anaplasma, ehrlichiosis , RMSF, babesiosis
Concern for stinging insect with resulting inflammation from sting
3.Cultures with NGTD
4. Left lower leg erythema/cellulitis less angry appearing with patient afebrile/without leukocytosis,no MRSA
5. Cannot exclude Lyme consider D/C home on po Cefuroxime axetil 500 mg po Q 12 H for 10 days which will be effective for Lyme as well for broad spectrum coverage
6. Continue local care of wound with elevation of left lower leg
Chief Complaint
-: Cellulitis (cellulitis likely from insect/spider bite)
Subjective / Review of Systems
Review of Systems: No Fever, No Chills, No Headache, No Pharyngitis, No Stiff Neck, No Swollen Lymph Nodes, No Cough, No Sputum Production, No Chest Pain, No Palpitations, No Abdominal Pain, No Nausea, No Vomiting, No Diarrhea, No Dysuria and No
Joint Pain (cellulitis secondary to insect/spider bite)
Vital Signs / Physical Exam
Vital Signs
Vital Signs
Temp Pulse Resp BP Pulse Ox
98.5 F 66 20 132/82 100
04/28/25 06:56 04/28/25 06:56 04/28/25 06:56 04/28/25 06:56 04/28/25 09:12
Physical Exam
Constitutional: No Acute Distress, Well Developed, Comfortable and Non-toxic
Head: Normocephalic
Eyes: Pupils Equal, Pupils Round, No Conjunctival Hemorrhage and Sclera Anicteric
Oropharyngeal: Benign
Cardiovascular: Regular Rate
Pulmonary: Non Labored
Gastrointestinal: Non Tender
Extremities: Erythema and Calf Swelling (improved erythema and decreased swelling of left lower leg)
Skin: Warm, Dry and Rash (inflammatory reaction and small blisters at site of insect bite left lower leg)
Neurological: Awake, Alert, Oriented, AO x 3 and No Motor Deficits
Psychological: Calm
Lines: PIV
Objective Data
Lab Data
Lab Results
04/28/25 07:12
04/28/25 07:12
Estimated Creat Clear 95 ml/min 04/28/25 07:12
Lactic Acid Cancelled 04/25/25 20:00
Most recent labs reviewed.
Microbiology: Report Reviewed
Micro Results:
04/27/25 12:04 Wound Culture - Preliminary
Ulcer No growth
Gram Stain - Preliminary
04/25/25 17:08 Blood Culture - Preliminary
Blood/Venous No Growth in 48 hours- Final report to follow
04/25/25 17:08 Blood Culture - Preliminary
Blood/Venous No Growth in 48 hours- Final report to follow
04/25/25 23:14 MRSA Screen - Final
Nose No Methicillin Resistant Staphylococcus aureus isolated.
Care Review
Plan reviewed with: Physician (ptient for D/C to home today)
Total Time Spent with Patient (in minutes): 25
== END 2025-04-28 11:47 | disposition home or self-care (01) | DRG 872 ==
LOC: 4 EAST ACU 18:34
PROVIDERS: Nurse Practitioner Family; Physician Assistant Medical; ADMITTING PHYSICIAN Internal Medicine; ATTENDING PHYSICIAN Internal Medicine; EMERGENCY PHYSICIAN Emergency Medicine; FAMILY PHYSICIAN Internal Medicine; OTHER PHYSICIAN Hospitalist
DX: A41.9 Sepsis, unspecified organism (principal); L03.116 Cellulitis of left lower limb; W57.XXXA Bitten or stung by nonvenomous insect and other nonvenomous arthropods, initial encounter; E03.9 Hypothyroidism, unspecified; S80.869A Insect bite (nonvenomous), unspecified lower leg, initial encounter
CPT/HCPCS: 80048; 80202; 83605; 85025; 85027; 86618; 87040; 87070; 87205; 93971; 96374; 99284